=== PATIENT | female | born 1965 | race Two or more races ===

== ENCOUNTER 2017-11-29 17:08 | Emergency (ER) | payer MEDICAID ==
[~2017-11-29] VITALS: Ht 162.6 cm; Wt 68.0 kg
[2017-11-29] MEDS ORDERED: LORAZEPAM 2 MG/1 ML VIAL IM ONE (17:30)
[2017-11-29] MEDS ORDERED: HALOPERIDOL LACTATE 5 MG/1 ML VIAL IM ONE (17:30)
[2017-11-29] MEDS ORDERED: diphenhydrAMINE 50 MG/1 ML VIAL IM ONE (17:30)
[2017-11-29] MEDS ORDERED: LORAZEPAM 2 MG/1 ML VIAL ONE (17:34)
[2017-11-29] MEDS ORDERED: OLANZAPINE 10 MG VIAL IM ONE (17:34)
[2017-11-29] MEDS ORDERED: HALOPERIDOL LACTATE 5 MG/1 ML VIAL ONE (17:34)
[2017-11-29] MEDS ORDERED: diphenhydrAMINE 50 MG/1 ML VIAL ONE (17:36)
[2017-11-29 18:07] LABS: BASOPHILS % (AUTO) 0.3 % (0.0-2.0); EOSINOPHILS # (AUTO) 0.1 K/uL (0.0-0.7); EOSINOPHILS % (AUTO) 1.4 % (0.0-7.0); HEMATOCRIT 40.3 % (31.2-41.9); HEMOGLOBIN 13.6 g/dL (10.9-14.3); LYMPHOCYTES # (AUTO) 1.4 K/uL (20.0-40.0); LYMPHOCYTES % (AUTO) 19.3 % (20.5-51.5); MEAN CORPUSCULAR HEMOGLOBIN 30.8 uug (24.7-32.8); MEAN CORPUSCULAR HGB CONC 34 g/dL (32.3-35.6); MEAN CORPUSCULAR VOLUME 90.8 fL (75.5-95.3); MONOCYTES # (AUTO) 0.5 K/uL (2.0-10.0); MONOCYTES % (AUTO) 7.2 % (0.0-11.0); NEUTROPHILS # (AUTO) 5.3 K/uL (1.8-8.9); NEUTROPHILS % (AUTO) 71.8 % (38.5-71.5); PLATELET COUNT (AUTO) 189 K/uL (179-408); RED BLOOD CELL COUNT(AUTO) 4.43 MIL/uL (3.63-4.92); WHITE BLOOD COUNT (AUTO) 7.4 K/uL (3.8-11.8)
[2017-11-29 18:21] LABS: CARBON DIOXIDE 26 mmol/L (21-32); CHLORIDE 104 mmol/L (98-107); CREATININE 0.7 mg/dL (0.6-1.3); ETHANOL < 3 MG/DL (0-0); GLUCOSE 122 mg/dL (74-106); POTASSIUM 3.2 mmol/L (3.5-5.1); UREA NITROGEN, BLOOD 18 mg/dL (7-18)
[2017-11-29 18:34] LABS: ALANINE AMINOTRANSFERASE 51 U/L (14-59); ALKALINE PHOSPHATASE 84 U/L (50-136); ASPARTATE AMINOTRANSFERASE 31 U/L (15-37); BILIRUBIN,DIRECT 0.3 mg/dL (0.0-0.2); TOTAL PROTEIN, SERUM 8.3 g/dL (6.4-8.2)
[2017-11-29 18:35] LABS: ACETAMINOPHEN < 2.0 ug/mL (10-30)
--- NOTE | 2017-11-29 19:30 | NUR ---
Patient is resting comfortably in bed with eyes closed
--- NOTE | 2017-11-29 21:30 | NUR ---
Patient is resting comfortably in bed with eyes closed
[2017-11-29 21:35] LABS: *BILIRUBIN,URIN NEGATIVE (NEGATIVE); *BLOOD, URINE NEGATIVE (NEGATIVE); *CLARITY,URINE CLEAR (CLEAR); *COLOR,URINE YELLOW (YELLOW); *KETONES,URINE 3+ (NEGATIVE); *PROTEIN,URINE 1+ (NEGATIVE); *UROBILINOGEN,URINE 0.2 E.U./dl (NORMAL); LEUKOCYTE ESTERASE ,URINE 1+ (NEGATIVE); NITRITE, URINE NEGATIVE (NEGATIVE); UGLUCOSE NEGATIVE (NEGATIVE)
[2017-11-29 21:49] LABS: BACTERIA,URINE NONE SEEN /HPF (NONE SEEN); RBC,URINE 0-3 /HPF (0-3); SQUAMOUS EPITHELIAL CELL,UR FEW /HPF (NONE SEEN)
[2017-11-29 21:54] LABS: *AMPHETAMINE, URINE NEGATIVE (NEGATIVE); *BARBITURATE, URINE NEGATIVE (NEGATIVE); *CANNABINOID, URINE NEGATIVE (NEGATIVE); *COCCAINE, URINE NEGATIVE (NEGATIVE); *OPIATE, URINE NEGATIVE (NEGATIVE); *PHENCYCLIDINE SCREEN,URINE NEGATIVE (NEGATIVE)
--- NOTE | 2017-11-30 | NUR ---
Patient is resting comfortably in bed with eyes closed
--- NOTE | 2017-11-30 02:53 | NUR ---
Patient is resting comfortably in bed with eyes closed
--- NOTE | 2017-11-30 05:00 | NUR ---
Patient is resting comfortably in bed with eyes closed
--- NOTE | 2017-11-30 06:46 | NUR ---
Arnie Little LCSW, at bedside for PET evaluation.
--- NOTE | 2017-11-30 07:30 | NUR ---
Pt is awake a/o x3 and verbally responsive. VSS.
--- NOTE | 2017-11-30 08:30 | NUR ---
Breakfast provided, pt has good appetite. Remaines awake A/O.
[2017-11-30] MEDS ORDERED: POTASSIUM CHLORIDE 20 MEQ TAB.PRT.SR PO ONE (09:00)
[2017-11-30] MEDS ORDERED: POTASSIUM CHLORIDE 20 MEQ TAB.PRT.SR ONE (09:24)
--- NOTE | 2017-11-30 09:35 | NUR ---
Pt provided 2 phone numbers for son, but none is conected when called.
--- NOTE | 2017-11-30 09:48 | NUR ---
Didn't recieve any calls from son, Per Psych canvas [employer]ter, Pt will be dischgarge home w/ Bus token.
--- NOTE | 2017-11-30 09:56 | NUR ---
Bus token given to Pt. Pt able to provide home address and how to get home.
--- NOTE | 2017-11-30 09:57 | NUR ---
Patient discharged to home in stable conditon. Written and verbal after care instructions given. Patient verbalizes understanding of instructions. Pt left ER w/ steady gait.
[2017-11-30 09:58] VITALS: BP 112/65
== END 2017-11-30 10:01 | disposition home or self-care (01) ==
LOC: ER 17:09
DX: F23 Brief psychotic disorder (principal)
CPT/HCPCS: 36415; 80307; 85025; A4663; G0480; G0480-TC; J1200; J1630; J2060; J2358